=== PATIENT | male | born 1950 | race Caucasian/White ===

== ENCOUNTER → 2016-08-16 12:39 | Outpatient (CLI) | payer MEDICARE | END | disposition home or self-care (01) | LOC: D.RT 12:39 | DX: R91.8 Other nonspecific abnormal finding of lung field (principal) ==

== ENCOUNTER → 2016-08-22 10:39 | Outpatient (CLI) | payer MEDICARE ==
[2016-08-22 12:01] LABS: ALBUMIN 4.2 g/dL (3.4-5.0); CALCIUM 10.2 mg/dL (8.5-10.1)
[2016-08-23 09:18] LABS: VITAMIN D 25 HYDROXY 29.7 ng/mL (30.0-100.0)
== END | disposition home or self-care (01) ==
LOC: D.LABREF 10:39
PROVIDERS: Internal Medicine Pulmonary Disease
DX: N18.9 Chronic kidney disease, unspecified (principal); E83.52 Hypercalcemia

== ENCOUNTER → 2017-01-15 09:45 | Outpatient (CLI) | payer MEDICARE | END | disposition home or self-care (01) | LOC: D.LAB 09:45 | PROVIDERS: Internal Medicine Pulmonary Disease | DX: E83.52 Hypercalcemia (principal) ==